=== PATIENT | female | born 2000 | race Caucasian/White ===

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

== ENCOUNTER → 2021-03-28 15:26 | Outpatient (CLI) | payer MEDICARE, SELFPAY | PROVIDERS: PCP Family Medicine; Referring Provider Physician Assistant; Visit Provider Physician Assistant | DX: R05.9 Cough, unspecified (principal) | CPT/HCPCS: 87635; U0005; U0003 ==

== ENCOUNTER 2021-08-18 16:55 | Outpatient (CLI) | payer BC, SELFPAY ==
[2021-08-18 17:42] LABS: Absolute Lymphocyte Count 2.14 X10^3/uL (0.83-4.51); Absolute Neutrophil Count 7.1 X10^3/uL (2.0-7.7); Basophil# 0.04 X10^3/uL; Basophil% 0.4 % (0-1); Eosinophil# 0.11 X10^3/uL; Eosinophils% 1.1 % (0-5); Hematocrit 38.7 % (37-47); Hemoglobin 13.4 g/dL (12.0-15.0); Lymphocyte # 2.14 X10^3/ul (0.83-4.51); Lymphocyte % 21.8 % (19-41); Mean Corp Hgb Conc 34.6 g/dL (32-36); Mean Corpuscular Hgb 31.6 pg (27.0-32.0); Mean Corpuscular Volume 91.3 fL (81-99); Monocyte# 0.42 X10^3/uL; Monocyte% 4.3 % (0-10); NRBC Flagged by Analyzer 0 % (0-5); Neutrophil # 7.05 X10^3/uL (2.7-7.7); Platelet Count 249 K/mm3 (150-450); RBC Distribution Width SD 39.9 fl (35.1-43.9); RET-HE 34.7 pg (30-35); Red Blood Count 4.24 M/mm3 (4.2-5.4); White Blood Count 9.8 K/mm3 (4.4-11.0)
[2021-08-18 18:23] LABS: Internal QC Validated? YES +Cl - CLEAR BKGD; Pregnancy, Serum, hCG Quali. NEGATIVE Negative
[2021-08-18 18:34] LABS: Anion Gap 7 (5-15); BUN 13 mg/dL (7-18); BUN/Creat Ratio 16.8 RATIO (10-20); Calcium,Total 9.5 mg/dL (8.5-10.1); Chloride 105 mmol/L (98-107); Creatinine, Serum 0.78 mg/dL (0.55-1.02); EST Glomerular Filtration Rate 98 mL/min (>60); Est Glom Filt Rate - Afr Amer 119 mL/min (>60); Ferritin 28 ng/mL (8-252); Glucose 77 mg/dL (74-106); Iron 64 ug/dL (50-170); Iron Binding Capacity,Total 331 ug/dL (250-450); Potassium 3.8 mmol/L (3.5-5.1); Sodium Level 139 mmol/L (136-145); Thyroid Stim Hormone (TSH) 1.65 uIU/mL (0.358-3.74)
[2021-08-18 18:35] LABS: Vitamin B12 430 pg/mL (211-911); Vitamin D,25 Hydroxy 22.3 ng/mL
== END 2021-08-18 23:59 | disposition home or self-care (01) ==
LOC: MTLAB 16:58
PROVIDERS: PCP Family Medicine; Referring Provider Family Medicine; Visit Provider Family Medicine
DX: D64.9 Anemia, unspecified (principal); Z13.1 Encounter for screening for diabetes mellitus; N91.2 Amenorrhea, unspecified; E55.9 Vitamin D deficiency, unspecified
CPT/HCPCS: 36415; 80048; 82306; 82607; 82728; 83540; 83550; 84443; 84703; 85025; 85045

== ENCOUNTER → 2021-11-19 | Outpatient (CLI) | payer BC, SELFPAY ==
[2021-11-19 18:24] LABS: Amphetamine Urine VISTA NEGATIVE (<1000 ng/mL); Barbiturate Urine VISTA NEGATIVE (< 200 ng/mL); Benzodiazepine Urine VISTA NEGATIVE (< 200 ng/mL); Cocaine Urine VISTA NEGATIVE (< 300 ng/mL); Ecstacy Urine VISTA NEGATIVE (< 500 ng/mL); Methadone Urine VISTA NEGATIVE (< 300 ng/mL); PCP Urine VISTA NEGATIVE (< 25 ng/mL); THC Urine VISTA NEGATIVE (< 50 ng/mL); Vista UDS pH Range 6
[2021-11-23 05:06] LABS: Chlamydia By Nucleic Acid AMP Negative (Negative)
[2021-11-23 11:27] LABS: Gonococcus By Nucleic Acid AMP Negative (Negative)
[2021-11-29 08:57] LABS: HPV Reflexed? NOT INDICATED
== END | disposition home or self-care (01) ==
PROVIDERS: PCP Family Medicine; Visit Provider Obstetrics & Gynecology
DX: Z34.00 Encounter for supervision of normal first pregnancy, unspecified trimester (principal); Z12.4 Encounter for screening for malignant neoplasm of cervix
CPT/HCPCS: 80307; 87086; 87088; 87491; 87591; 88175; G0145

== ENCOUNTER → 2021-12-17 | Outpatient (CLI) | payer BC, SELFPAY ==
[2021-12-17 16:58] LABS: Absolute Lymphocyte Count 2.31 X10^3/uL (0.83-4.51); Basophil# 0.03 X10^3/uL; Basophil% 0.3 % (0-1); Eosinophil# 0.07 X10^3/uL; Eosinophils% 0.6 % (0-5); Hematocrit 35.1 % (37-47); Hemoglobin 11.9 g/dL (12.0-15.0); Lymphocyte # 2.31 X10^3/ul (0.83-4.51); Mean Corp Hgb Conc 33.9 g/dL (32-36); Mean Corpuscular Hgb 30.5 pg (27.0-32.0); Mean Platelet Vol. 10.4 fl (6.2-12.0); Monocyte# 0.54 X10^3/uL; Monocyte% 4.9 % (0-10); NRBC Flagged by Analyzer 0 % (0-5); Neutrophil # 8.01 X10^3/uL (2.7-7.7); Neutrophil % 72.8 % (47-70); Platelet Count 239 K/mm3 (150-450); RBC Distribution Width CV 12.2 % (11.6-14.6); RBC Distribution Width SD 39.6 fl (35.1-43.9)
[2021-12-17 18:13] LABS: HIV - WCH Non-Reactive (Nonreactive); Hepatitis B Surface Antigen Non-Reactive (Nonreactive); Hepatitis C Antibody Non-Reactive (Nonreactive); Rubella IgG Reactive (Nonreactive); Syphilis Antibodies Non-reactive
== END | disposition home or self-care (01) ==
LOC: LAB 15:57
PROVIDERS: PCP Family Medicine; Referring Provider Obstetrics & Gynecology; Visit Provider Obstetrics & Gynecology
DX: Z34.00 Encounter for supervision of normal first pregnancy, unspecified trimester (principal)
CPT/HCPCS: 36415; 85025; 86703; 86762; 86780; 86803; 86850; 86900; 86901; 87340

== ENCOUNTER → 2022-04-06 | Outpatient (CLI) | payer BC, SELFPAY ==
[2022-04-06 15:31] LABS: Absolute Lymphocyte Count 2.24 X10^3/uL (0.83-4.51); Absolute Neutrophil Count 10.4 X10^3/uL (2.0-7.7); Basophil# 0.05 X10^3/uL; Basophil% 0.4 % (0-1); Eosinophil# 0.18 X10^3/uL; Eosinophils% 1.3 % (0-5); Hematocrit 33.8 % (37-47); Hemoglobin 11.7 g/dL (12.0-15.0); Lymphocyte # 2.24 X10^3/ul (0.83-4.51); Lymphocyte % 16.3 % (19-41); Mean Corp Hgb Conc 34.6 g/dL (32-36); Mean Corpuscular Hgb 32.9 pg (27.0-32.0); Mean Corpuscular Volume 94.9 fL (81-99); Mean Platelet Vol. 10.5 fl (6.2-12.0); Monocyte# 0.69 X10^3/uL; NRBC Flagged by Analyzer 0 % (0-5); Neutrophil % 75.8 % (47-70); Platelet Count 226 K/mm3 (150-450); RBC Distribution Width CV 12.9 % (11.6-14.6); RBC Distribution Width SD 44.6 fl (35.1-43.9); Red Blood Count 3.56 M/mm3 (4.2-5.4); White Blood Count 13.7 K/mm3 (4.4-11.0)
[2022-04-06 15:47] LABS: Glucose Challenge Gest 1H 50g 120 mg/dL (70-140)
== END | disposition home or self-care (01) ==
PROVIDERS: Nurse Practitioner Women's Health; PCP Family Medicine; Referring Provider Obstetrics & Gynecology; Visit Provider Obstetrics & Gynecology
DX: Z34.00 Encounter for supervision of normal first pregnancy, unspecified trimester (principal)
CPT/HCPCS: 36415; 82950; 85025

== ENCOUNTER 2022-06-03 23:00 | Inpatient (IN) | payer BC, SELFPAY ==
[2022-06-03 18:55] VITALS: BP 110/65; PULSE 85
[2022-06-03 19:07] VITALS: BMI 26.6
[2022-06-03 20:16] VITALS: TEMP 37
[2022-06-03 20:17] VITALS: BP 100/66; PULSE 68; PULSE 70; O2SAT 96
[2022-06-03 21:06] LABS: Group B Strep DNA By PCR Negative (Negative); Internal Control PASS; Probe Check PASS; Specimen Processing Control PASS
[2022-06-03] MEDS: Lactated Ringers 1,000 ML 999 ML IV (22:00)
[2022-06-03 22:17] LABS: Absolute Lymphocyte Count 2.42 X10^3/uL (0.83-4.51); Absolute Neutrophil Count 13.7 X10^3/uL (2.0-7.7); Basophil# 0.07 X10^3/uL; Basophil% 0.4 % (0-1); Eosinophil# 0.16 X10^3/uL; Eosinophils% 0.9 % (0-5); Hematocrit 34.4 % (37-47); Hemoglobin 11.8 g/dL (12.0-15.0); Lymphocyte # 2.42 X10^3/ul (0.83-4.51); Lymphocyte % 13.8 % (19-41); Mean Corp Hgb Conc 34.3 g/dL (32-36); Mean Corpuscular Hgb 31.7 pg (27.0-32.0); Mean Corpuscular Volume 92.5 fL (81-99); Mean Platelet Vol. 10.8 fl (6.2-12.0); Monocyte# 0.99 X10^3/uL; Monocyte% 5.6 % (0-10); NRBC Flagged by Analyzer 0 % (0-5); Neutrophil # 13.72 X10^3/uL (2.7-7.7); Neutrophil % 78.2 % (47-70); Platelet Count 224 K/mm3 (150-450); RBC Distribution Width CV 12.8 % (11.6-14.6); RBC Distribution Width SD 42.9 fl (35.1-43.9); Red Blood Count 3.72 M/mm3 (4.2-5.4); White Blood Count 17.6 K/mm3 (4.4-11.0)
[2022-06-03 23:14] VITALS: BP 110/67; PULSE 74; TEMP 36.1; O2SAT 100
[2022-06-03] MEDS: Ondansetron 4 MG/2 ML Vial IV (23:19)
[2022-06-03] MEDS: 0.9% Saline Lock 10 ML Syringe IV (23:19)
[2022-06-03 23:20] LABS: ROM Internal Control Test YES-OK TO RESULT pt. (Internal QC)
[2022-06-03] MEDS: Lactated Ringers 1,000 ML 50 ML IV (23:21)
[2022-06-03 23:23] LABS: ROM Patient Test POSITIVE (Negative)
[2022-06-04] VITALS (67 sets, daily range): BP systolic 80–129; BP diastolic 42–70; PULSE 51–109; RESP 16; TEMP 36.4–37.3; O2SAT 87–100
[2022-06-04] MEDS: LACTATED RINGERS 500 ML 999 ML IV ×2 (00:57→02:50)
[2022-06-04] MEDS: fentaNYL-bupivacaine (epidural) 100 ML BAG EPIDURAL (02:09)
[2022-06-04] MEDS: Oxytocin 10 UNITS/ML Vial IM (03:33)
--- NOTE | 2022-06-04 03:40 | HP.PCM.OB_ITS ---
HPI - General General Date of Admission: 06/03/22 HPI Narrative PARMINDER NAGEL, is a 22 F who presents IAL with cervical change and SROM good fm regular ctx no signs of infection. PCN started due to rapid gbs neg Maternal Data Information LYLY Calculator Estimated Delivery Date Method Current WG Current Estimate 07/01/22 Ultrasound #1 36w 1d Other Estimates 06/17/22 LMP (Certain) 38w 1d PFSH PFSH Medical History no medical history Home Medications loratadine 10 mg tablet (Claritin) 10 mg PO DAILY 06/30/20 [History Last Taken Unknown] prenat.vits,ene,nqe-sngk-sidiv 1 tab PO DAILY 11/08/21 [History Last Taken Unknown] Allergy/AdvReac Type Severity Reaction Status Date / Time No Known Allergies Allergy Verified 06/03/22 15:35 Family History Grandmother Asthma Myocardial infarction Mother Bleeding disorder Grandfather Myocardial infarction Surgical History [place] teeth extracted Social History adopted: No household members: spouse current occupational status: employed 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 pets and animals: Yes pets and animals: dog(s) Smoking Status: Never smoker alcohol intake: current details: not while substance use type: does not use do you feel safe at home: Yes additional social history: Jake History 1 Elective abortions Hx Para 0 Spontaneous abortions Hx # Term Pregnancies Ectopic pregnancies Hx # Pregnancies Multiple births # of living children Visit Details Expected Delivery Route/Plan Labor Preferences- CB/BF classes: yes labor support person: Jake labor intervention preferences: [] pain management options preferred: limited intervention, nitrous ok cut cord/dad catch: no : yes PP control planned: discussed discussed possible routes of delivery and associated risks: [] special requests: [] Plans Covid status: discussed Flu vaccine: at work Tdap vaccine: discussed Rhogam: na LARC form signed: yes Problem list reviewed and updated with the most current plan of care details and appropriate orders placed. Relevant counseling for the gestational age provided. Continue routine care and follow up unless otherwise noted in visit notes/problem list details OB Flowsheet Initial Weight: Not Recorded Date -?-?-?-?-?-?-?-?-?-?-?-?- EGA Weight BP Urine Prot -?-?-?-?-?-?-?-?-?-?-?-?- Glucose FHR FuHt Pres Dilation -?-?-?-?-?-?-?-?-?-?-?-?- Effaced St Visit Note 11/19/21 -?-?-?-?-?--?-?-?-?-?-?-?- 8w 0d 123 lb 8 oz 120/78 -?-?-?-?-?-?-?-?-?-?-?-?- 147 -?-?-?-?-?-?-?-?-?-?-?-?- JV- CRL NOT cons istent with lmp. off by weeks. New LYLY 07/01/21 12/17/21 -?-?-?-?-?-?-?-?-?-?-?-?- 12w 0d 121 lb 8 oz 110/76 Nega tive -?-?-?-?-?-?-?-?-?-?-?-?- Negative 150 -?-?--?-?-?-?-?-?-?-?-?-?- Sm- no vb crampi ng 01/14/22 -?-?-?-?-?-?-?-?-?-?-?-?- 16w 0d 122 lb 118/72 -?-?-?-?-?-?-?-?-?-?-?-?- 150 -?-?-?-?-?-?-?-?-?-?-?-?- SM- no vb crmapi ng [facility] labs 02/10/22 -?-?-?-?-?-?-?-?-?-?-?-?- 19w 6d 126 lb 110/70 Negative -?-?-?-?-?-?-?-?-?-?-?-?- Negative 145 -?-?-?-?-?-?-?-?-?-?-?-?- JV- no lof, vagi nal bleeding or cramping. + FM. needs rpt images (scheduled) going on jerome to karthikeyan montalvo 03/11/22 -?-?-?-?-?-?-?-?-?-?-?-?- 24w 0d 131 lb 108/60 Negative -?-?-?-?-?-?-?-?-?-?-?-?- Negative 145 -?-?-?-?-?-?-?-?-?-?-?-?- SM- no vb lof go od fm no regular ctx 04/06/22 -?-?-?-?-?-?-?-?-?-?-?-?- 27w 5d 135 lb 8 oz 110/68 Nega tive -?-?-?-?-?-?-?-?-?-?-?-?- Negative 146 -?-?-?-?-?-?-?-?-?-?-?-?- -No VB, LOF. G ood FM. 28 wk labs, larc. Still considering tdap 04/22/22 -?-?-?-?-?-?-?-?-?-?-?-?- 30w 0d 139 lb 8 oz 112/75 Nega tive -?-?-?-?-?-?-?-?-?-?-?-?- Negative 140 29 -?-?-?-?-?-?-?-?-?-?-?-?- JV- no lof, vagi nal bleeding, or dec fm. 05/05/22 -?-?-?-?-?-?-?-?-?-?-?-?- 31w 6d 141 lb 6 oz 108/66 Nega tive -?-?-?-?-?-?-?-?-?-?-?-?- Negative 147 31 -?-?-?-?-?-?-?-?-?-?-?-?- MH-No VB, LOF. G ood FM. 05/18/22 -?-?-?-?-?-?-?-?-?-?-?-?- 33w 5d 146 lb 105/68 Negative -?-?-?-?-?-?-?-?-?-?-?-?- Negative 141 33 -?-?-?-?-?-?-?-?-?-?-?-?- MH-No VB, LOF. G ood FM. No reg CTX. Doing well 06/03/22 -?-?-?-?-?-?-?-?-?-?-?-?- 36w 0d 147 lb 4 oz 118/79 Nega tive -?-?-?-?-?-?-?-?-?-?-?-?- Negative 134 35 Cephalic 4 -?-?-?-?-?-?-?-?-?-?-?-?- 80 0 JV- pt is complaining of frequent contractions since 4 am. She has a stop clock on her phone and it appears contractions are every 5-10 minutes. I have instructed her to go to L&D for further monitoring vs go home and pack a bag and come back due to the low station. 06/03/22 -?-?-?-?-?-?-?-?-?-?-?-?- 36w 0d 145 lb 11.609 oz 100 /66 110/67 129/56 116/64 106/59 114/61 115/66 114/65 119/70 112/64 113/65 111/60 101/56 92/54 -?-?-?-?-?-?-?-?-?-?-?-?- -?-?-?-?-?-?-?-?-?-?-?-?- NST FHR Rate Baby A Baseline: 140 Variability:: Moderate Accelerations:: 15 x 15 Decelerations:: None NST Reactive:: Yes FHR Category:: Category I Uterine Activity:: q3-5 ROS Constitutional Constitutional: Reports systems reviewed and no addt'l complaints, except as documented ENT HEENT: Reports systems reviewed and no addt'l complaints, except as documented Cardiovascular Cardiovascular: Reports systems reviewed and no addt'l complaints, except as documented Respiratory/Chest Respiratory/Chest: Reports systems reviewed and no addt'l complaints, except as documented Gastrointestinal Gastrointestinal: Reports systems reviewed and no addt'l complaints, except as documented and nausea; Denies abdominal pain Genitourinary Genitourinary: Reports systems reviewed and no addt'l complaints, except as documented, contractions Details: present and frequency (regular ) and movement Details: present Musculoskeletal Musculoskeletal: Reports systems reviewed and no addt'l complaints, except as documented Integumentary Integumentary: Reports as per HPI Neurologic Neurologic: Reports systems reviewed and no addt'l complaints, except as documented Endocrine Endocrinology: Reports systems reviewed and no addt'l complaints, except as documented Vital Signs Vital Signs Vital Signs: 06/03/22 18:55 06/03/22 18:55 06/03/22 20:17 Temperature Temperature Source Pulse Rate 85 70 Blood Pressure 110/65 BP Systolic 110 BP Diastolic 65 Pulse Ox 06/03/22 20:17 06/03/22 20:16 06/03/22 20:17 Temperature Temperature Source Temporal Pulse Rate Blood Pressure 100/66 BP Systolic 100 BP Diastolic 66 Pulse Ox 96 06/03/22 20:17 06/03/22 20:16 06/03/22 23:14 Temperature 98.6 F Temperature Source Pulse Rate 68 Blood Pressure 110/67 BP Systolic 110 BP Diastolic 67 Pulse Ox 06/03/22 23:14 06/03/22 23:14 06/03/22 23:14 Temperature Temperature Source Temporal Pulse Rate 74 Blood Pressure BP Systolic BP Diastolic Pulse Ox 100 06/03/22 23:14 06/04/22 01:44 06/04/22 01:44 Temperature 97.0 F L Temperature Source Pulse Rate 90 Blood Pressure BP Systolic BP Diastolic Pulse Ox 93 06/04/22 01:45 06/04/22 01:45 06/04/22 01:49 Temperature Temperature Source Pulse Rate 97 80 Blood Pressure 129/56 H BP Systolic 129 BP Diastolic 56 Pulse Ox 06/04/22 01:49 06/04/22 01:51 06/04/22 01:51 Temperature Temperature Source Pulse Rate 109 H Blood Pressure 116/64 BP Systolic 116 BP Diastolic 64 Pulse Ox 99 06/04/22 01:51 06/04/22 01:51 06/04/22 01:51 Temperature Temperature Source Pulse Rate 78 Blood Pressure 106/59 L BP Systolic 106 BP Diastolic 59 Pulse Ox 94 06/04/22 01:54 06/04/22 01:54 06/04/22 01:57 Temperature Temperature Source Pulse Rate 79 Blood Pressure 114/61 BP Systolic 114 BP Diastolic 61 Pulse Ox 99 06/04/22 01:57 06/04/22 01:57 06/04/22 01:59 Temperature Temperature Source Pulse Rate 82 103 H Blood Pressure BP Systolic BP Diastolic Pulse Ox 92 06/04/22 01:59 06/04/22 02:01 06/04/22 02:01 Temperature Temperature Source Pulse Rate 83 Blood Pressure 115/66 BP Systolic 115 BP Diastolic 66 Pulse Ox 98 06/04/22 02:04 06/04/22 02:04 06/04/22 02:07 Temperature Temperature Source Pulse Rate 82 Blood Pressure 114/65 BP Systolic 114 BP Diastolic 65 Pulse Ox 98 06/04/22 02:07 06/04/22 02:09 06/04/22 02:09 Temperature Temperature Source Pulse Rate 84 80 Blood Pressure BP Systolic BP Diastolic Pulse Ox 98 06/04/22 02:12 06/04/22 02:12 06/04/22 02:14 Temperature Temperature Source Pulse Rate 83 84 Blood Pressure BP Systolic 122 BP Diastolic Pulse Ox 06/04/22 02:14 06/04/22 02:17 06/04/22 02:17 Temperature Temperature Source Pulse Rate 79 Blood Pressure 119/70 BP Systolic 119 BP Diastolic 70 Pulse Ox 100 06/04/22 02:17 06/04/22 02:18 06/04/22 02:18 Temperature Temperature Source Temporal Pulse Rate 78 Blood Pressure 112/64 BP Systolic 112 BP Diastolic 64 Pulse Ox 06/04/22 02:17 06/04/22 02:19 06/04/22 02:19 Temperature 98.2 F Temperature Source Pulse Rate 74 Blood Pressure BP Systolic BP Diastolic Pulse Ox 100 06/04/22 02:22 06/04/22 02:22 06/04/22 02:24 Temperature Temperature Source Pulse Rate 68 99 Blood Pressure 113/65 BP Systolic 113 BP Diastolic 65 Pulse Ox 06/04/22 02:24 06/04/22 02:29 06/04/22 02:30 Temperature Temperature Source Pulse Rate 82 Blood Pressure 111/60 BP Systolic 111 BP Diastolic 60 Pulse Ox 100 06/04/22 02:30 06/04/22 03:09 06/04/22 03:09 Temperature 98.5 F Temperature Source Temporal Pulse Rate Blood Pressure BP Systolic BP Diastolic Pulse Ox 99 06/04/22 03:11 06/04/22 03:11 Temperature Temperature Source Pulse Rate 75 Blood Pressure 101/56 L BP Systolic 101 BP Diastolic 56 Pulse Ox Weight Weight: 145 lb 11.609 oz Body Mass Index (BMI) 26.6 Physical Exam Const alert, oriented x3 and healthy appearing Constitutional Narrative: uncomfortable with contractions HEENT normocephalic and moist oral mucous membranes Head and Scalp: atraumatic Neck full ROM, no lymphadenopathy, supple and thyroid normal General: trachea midline Thyroid: thyroid normal Lymph Lymphatic: no lymphadenopathy noted Chest inspection of chest normal Resp normal respiratory effort Cardio regular rate GI normal to inspection, nondistended, normoactive bowel sounds, soft to palpation and non-tender Inspection: gravid external exam normal Bimanual Exam - Vag & Uterus: uterus non-tender Manual OB Exam: estimated gestational size appropriate, presentation cephalic, dilated, effaced and station Extremity normal to inspection General Extremity: Negative for edema Skin no rashes or lesions noted Neuro deep tendon reflexes 2+ bilaterally Motor Exam: strength 5/5 throughout and clonus absent Psych mental status grossly normal Labs Labs Labs: Blood Type O POSITIVE Antibody Screen NEGATIVE Hct 34.4 % (37-47) L Hgb 11.8 g/dL (12.0-15.0) L Syphilis Total Ab Non-reactive Rubella IgG Antibody Reactive (Nonreactive) Hep Bs Antigen Non-Reactive (Nonreactive) Chlamydia DNA (GEORGETTE) Negative (Negative) Neisseria gonorrhoeae DNA (GEORGETTE) Negative (Negative) HIV 1&2 Antibody Non-Reactive (Nonreactive) Glucose 1 Hr 50 gm 120 mg/dL (70-140) Group B Strep DNA Negative (Negative) Assessment & Plan (1) : QUALIFIERS: Weeks of gestation: 33 weeks Qualified Code(s): Z3A.33 - 33 weeks gestation of COMMENT: nl anatomy, declines genetic and carrier screen (2) Supervision of normal first : COMMENT: PRR LYLY 06/17/22 girl Dick Sp:Jake (3) Anxiety and depression: COMMENT: No medications currently. stable (4) labor: PLAN: Plan admit IAL PCN treat due to prematurity rapid gbs neg culture pending
--- NOTE | 2022-06-04 03:42 | EX.PCM.OBRPT ---
Assessment & Plan (1) labor: (2) Anxiety and depression: COMMENT: No medications currently. stable (3) Supervision of normal first : COMMENT: PRR LYLY 06/17/22 girl Zenaida Sp:Jake (4) : QUALIFIERS: Weeks of gestation: 33 weeks Qualified Code(s): Z3A.33 - 33 weeks gestation of COMMENT: nl anatomy, declines genetic and carrier screen (5) Vaginal delivery: COMMENT: 36 SM girl zenaida Maternal Data Information LYLY Calculator Estimated Delivery Date Method Current WG Current Estimate 07/01/22 Ultrasound #1 36w 1d Other Estimates 06/17/22 LMP (Certain) 38w 1d Vaginal Delivery Operative Information Date of Procedure: 06/04/22 Pre-Operative Diagnosis: IAL Post-Operative Diagnosis: same Surgery / Procedure Performed: Spontaneous Vaginal Delivery Type of Anesthesia: Epidural Special Medications: none Estimated Blood Loss: 200 Fluids Replaced: crystalloid Findings Description of Procedure: Patient began pushing and delivered the head in the LYSSA presentation. The head was delivered atraumatically . The anterior and posterior shoulders delivered without complication followed by the rest of the infant and the was placed on the maternal abdomen. Delayed cord clamping was employed for approximately 60 seconds. Cord was clamped and cut and gentle traction was applied to the cord and the placenta delivered spontaneously immediately following it was noted to be intact with three-vessel cord. The perineum and vagina were inspected and noted to have no laceration. EBL was 200. Patient and tolerated delivery well. Presentation: LYSSA Amniotic Membrane Rupture Type: Spontaneous Amniotic Fluid Description: Clear Placental Delivery Description: Spontaneous Placenta Disposition: [facility] Cord Vessel Description: 3 Vessels Cord Entanglement: None Infant A Gender: Female Delayed Cord Clamping: Yes Post Vaginal Delivery Medications Given After Delivery: IV Pitocin Episiotomy Description: None Laceration: None Complication Complications: None Procedures Urinary/Genital [id number]: [id number] Vaginal Delivery [facility]
--- NOTE | 2022-06-04 04:15 | DCINST_ITS ---
Discharge Instructions Diet Discharge Diet: No restrictions Activity Discharge Activity: Return to Normal Activity, May Drive, May Shower and May Take a Tub Bath (in 4 weeks) May resume sexual activity in: 6-8 weeks (after seen by OB provider) Weight Bearing Status: Full weight bearing Lifting Restrictions: none Dressing / Incision Call your doctor if you observe: Fever of 101 or Higher, Inability to urinate, Using more than 1 pad per hour (for more than 2 hours in a row or more), Shortness of breath, Dizziness, Chest pain and - (headache not controlled with tylenol, change in vision) Follow Up Care When: in 6 weeks for visit, call the office to make the appointment. If you had elevated blood pressures call the office to be seen within 1 week. Test Results: Test results from this visit will be discussed in further detail at your follow- up appointment, if applicable. Discharge Plan Admission Admit Date/Time: 06/03/22 23:00 Attending Provider: Darleen Mchugh Primary Care Provider: Buddy Hilliard Discharge Orders/Prescriptions Prescriptions: No Action loratadine [Claritin] 10 mg tablet 10 mg PO DAILY prenat.vits,ene,bbr-nofd-ccbst Tablet 1 tab PO DAILY Referrals / Follow Up: Buddy Hilliard MD [Primary Care Provider] -
--- NOTE | 2022-06-04 16:49 | CASEMGMT ---
Social Work Assessment Labor and Delivery Unit Date/Time of referral: 06/04/22, 1:15pm Referred by: Dr. Rodriguez Date/Time of assessment: 06/04/22, 4:15pm Reason for referral: History of anxiety and depression History obtained from: MOB and FOB Household composition: MOB, FOB, and now baby Naga. This is their first baby. They have been together for 6 years, three. Guardian Status: MOB and FOB are guardians of Naga. Medical history: MOB: Hx of anxiety and depression in high school. Baby: Born 06/04/22 at 3:30am. Apgars 9 and 9 at one and five minutes. 2.415g at . Educational Status: Both MOB and FOB finished high school. Financial Concerns: None. MOB works as construction management assistant at [employer]. She is undecided if she will return. They have family that could help with childcare. FOB works in manufacturing. Infant supplies: They have all needed supplies including car seat, crib, bassinet, clothing, diapers, wipes, bottles and formula if needed. MOB plans to breast feed. Childcare/Caregivers: MOB's mother, FOB's mother. Transportation: They have vehicles Programs/Agencies involved: None Children's Services/Legal issues: None Behavioral Health Issues: Substance abuse: None for MOB or FOB. Mental health: No history for FOB. For MOB, she states had some depression in high school. She did counseling when she was 15. She has not been in counseling since. She had some anxiety after high school but does not report anxiety now other than normal day to day stuff. She has not felt she needed counseling since high school. No safety concerns at this time. Family/Social Stressors: None Support Systems: Both MOB and FOB report to have supportive families. MOB's mother and sister are visiting at present, SW asked them to step out so SW could speak w/MOB and FOB. Anxiety and Depression/Shaken Baby/Help Me Grow/Mental Health Resources/[facility]/Mental Health Hotline/Safe Sleeping: SW gave information and reviewed information on all of these topics to MOB and FOB. SW reviewed in particular signs and symptoms of depression. SW explained to MOB if having symptoms to speak w/her physician about it. SW explained that with depression, medication and/or counseling can help. MOB states understanding. Assessment: MOB and FOB appropriate, answered all questions. FOB holding baby, appropriate w/care of baby. No concerns at this time. Plan: Baby to go home w/FOB and MOB when ready for discharge. No further social service needs anticipated at this time. DANIEL Ramirez
[2022-06-04] MEDS: Acetaminophen 500 MG Tablet 1000 MG PO (22:39)
[2022-06-05 00:14] VITALS: BP 96/54; PULSE 70; RESP 16; TEMP 36.6; O2SAT 95
[2022-06-05 05:59] VITALS: BP 102/42; PULSE 75; RESP 16; TEMP 36.6; O2SAT 98
--- NOTE | 2022-06-05 06:36 | PCM.PN.OB ---
Subjective Subjective Patient doing well without complaints. Tolerating PO. Ambulating and voiding without difficulty. feeding well. Denies chest pain, shortness of breath, calf pain/swelling, fevers, chills, lightheadedness. Objective Data Objective Data Vital Signs: Vital Signs Temp Pulse Resp BP Pulse Ox O2 Del Method 98 F 75 16 102/42 L 98 Room Air 06/05/22 05:59 06/05/22 05:59 06/05/22 05:59 06/05/22 05:59 06/05/22 05:59 06/05/22 05:59 Oxygen Delivery Method Room Air Weight: 145 lb 11.609 oz Body Mass Index (BMI) 26.6 Intake & Output: Intake and Output for Last 24 Hours 06/03/22 06/04/22 06/05/22 23:59 23:59 23:59 Intake Total 1000 / 1000 2052.50 / 2052.50 Output Total 1700 / 1700 Balance 1000 / 1000 352.50 / 352.50 Lab / Micro Data Result Diagrams: 06/03/22 22:00 ROS Constitutional Constitutional: Reports systems reviewed and no addt'l complaints, except as documented Cardiovascular Cardiovascular: Reports systems reviewed and no addt'l complaints, except as documented Respiratory/Chest Respiratory/Chest: Reports systems reviewed and no addt'l complaints, except as documented Gastrointestinal Gastrointestinal: Reports systems reviewed and no addt'l complaints, except as documented Physical Exam Const alert, oriented x3 and no apparent distress HEENT Head and Scalp: atraumatic Resp normal respiratory effort GI soft to palpation and non-tender Bimanual Exam - Vag & Uterus: uterus non-tender Uterus Palpation: uterus fundus firm (below Umbilicus) Assessment & Plan (1) Vaginal delivery: COMMENT: 36 SM girl zenaida PLAN: Plan s/p PPD # 1 1. routine post delivery care 2. breast feeding- support given 3. rh positive 4. rubella immune
[2022-06-05 08:00] VITALS: BP 96/47; PULSE 81; RESP 16; TEMP 36.8; O2SAT 98
== END 2022-06-05 11:30 | disposition home or self-care (01) | DRG 807 ==
LOC: WPOUT 23:04 → WP 23:04
PROVIDERS: Admitting Provider Obstetrics & Gynecology; PCP Family Medicine; Referring Provider Obstetrics & Gynecology; Visit Provider Obstetrics & Gynecology
DX: O60.14X0 Preterm labor third trimester with preterm delivery third trimester, not applicable or unspecified (principal); Z37.0 Single live birth; Z3A.36 36 weeks gestation of pregnancy
CPT/HCPCS: 59025; 59050; 84112; 85025; 86850; 86900; 86901; 87081; 87653; 99218; J7120; A4216; G0378; J2405

== ENCOUNTER → 2024-08-15 | Outpatient (CLI) | payer OTHER, SELFPAY ==
[2024-08-21 08:22] LABS: HPV Reflexed? NOT INDICATED
== END | disposition home or self-care (01) ==
LOC: LABSPEC 15:17
PROVIDERS: PCP Family Medicine; Referring Provider Nurse Practitioner Family; Visit Provider Nurse Practitioner Family
DX: Z12.4 Encounter for screening for malignant neoplasm of cervix (principal)
CPT/HCPCS: 88175; G0145